=== PATIENT | male | born 1990 ===

== ENCOUNTER 2018-06-03 10:45 | Emergency (ER) | payer BC ==
[2018-06-03 11:23] VITALS: BP 121/78; PULSE 54; RESP 18; TEMP 97.7; O2SAT 99
--- NOTE | 2018-06-03 11:45 | C.PDOC ---
History Of Present Illness Patient is a 28 year old male who presents to the ED for right lower eyelid pain and swelling that has progressed over the past 2 days. Patient states that he has had similar symptoms in the past for which he was seen by the financial compliance manager and given antibiotic eye ointment. He denies any recent illness, blurry vision, eye discharge, foreign body sensation, or contact use. Ambulatory in ED , not in any apparent distress. Time Seen by Provider: 06/03/18 11:16 Chief Complaint (Nursing): Eye Problem History Per: Patient History/Exam Limitations: no limitations Onset/Duration Of Symptoms: Days (2) Current Symptoms Are (Timing): Still Present Injury To Eye?: No Quality: "Pain" (right lower eyelid ) Wears Contact Lens?: No Associated Symptoms: Swelling. denies: Decreased Vision, FB Sensation, Discharge From Eye Recent travel outside of the [place]: No Additional History Per: Patient Past Medical History Reviewed: Historical Data, Nursing Documentation, Vital Signs Vital Signs: Last Vital Signs Temp 97.7 F 06/03/18 10:59 Pulse 54 L 06/03/18 10:59 Resp 18 06/03/18 10:59 BP 121/78 06/03/18 10:59 Pulse Ox 99 06/03/18 10:59 - Medical History PMH: No Chronic Diseases Surgical History: No Surg Hx Family History: States: Unknown Family Hx - Social History Hx Alcohol Use: Yes Hx Substance Use: No - Immunization History Hx Tetanus Toxoid Vaccination: No Hx Influenza Vaccination: No Hx Pneumococcal Vaccination: No Review Of Systems Eyes: Positive for: Pain (lower right eyelid ), Eyelid Inflammation (lower right ). Negative for: Vision Change, Other (blurry vision, discharge, foreign body sensation) Physical Exam - Physical Exam Appears: Well, Non-toxic, No Acute Distress Skin: Normal Color, Warm, Dry Head: Normacephalic Eye(s): bilateral: PERRL, EOMI (no pain or limitation on extraocular movement), right: Other (mild edema, erythema and tenderness over medial corner lower lid. No flactulance, no periorbital edma or erythema) Ear(s): Bilateral: Normal Nose: No Flaring, No Discharge Oral Mucosa: Moist Tongue: Normal Appearing Lips: Normal Appearing Throat: No Erythema, No Drooling Neck: Trachea Midline, Supple Extremity: Normal ROM Neurological/Psych: Oriented x3, Normal Speech ED Course And Treatment O2 Sat by Pulse Oximetry: 99 (on RA) Pulse Ox Interpretation: Normal Progress Note: On re-eval, afebrile, heodynamicaly stable. non-toxic. Ambu latory in ED with stable gait. Right eye: mild edema and erythema localized over medial corner lower lid likely chalazion. No pain or limitation on extraocular movement, no eye discharge. No periorbital edema or erythema. VA review with pt, appears normal without adjustment. Pt advised. ref. to F/u with Opht in 1-2 days for re-eavlution. return if any worsening or new changes. Disposition Counseled Patient/Family Regarding: Diagnosis, Need For Followup, Rx Given - Disposition Referrals: Manas Parry MD [Staff Provider] - Disposition: HOME/ ROUTINE Disposition Time: 11:25 Condition: STABLE Additional Instructions: Use medication as prescribed Follow up with ophthalmology in 2-3 days for re-evaluation. return if any new changes. Prescriptions: Amoxicillin/Clavulanate [Augmentin 875 MG-125 MG] 1 tab PO BID #14 tab Neomycin/Polymyxin/Dexamethaso [Dexamethasone/Neomycin/Polymyxin] 1 oin RIGHTEYE TID #1 tube Instructions: Chalazion Forms: [facility] (Jamaican) Print Language: DOMINICAN - Clinical Impression Clinical Impression: Chalazion - PA / MECHANICAL PRODUCT ENGINEER / Resident Statement MD/DO has reviewed & agrees with the documentation as recorded. - Scribe Statement The provider has reviewed the documentation as recorded by the Scribjarod Parnell All medical record entries made by the Scribe were at my direction and personally dictated by me. I have reviewed the chart and agree that the record accurately reflects my personal performance of the history, physical exam, medical decision making, and the department course for this patient. I have also personally directed, reviewed, and agree with the discharge instructions and disposition.
== END 2018-06-03 11:57 | disposition home or self-care (01) ==
LOC: C.ER 10:45
DX: H00.12 Chalazion right lower eyelid (principal)